=== PATIENT | female | born 2000 | race African-American/Black ===

== ENCOUNTER 2024-05-26 07:28 | Inpatient (IN) ==
[2024-05-26] MEDS ORDERED: OXYTOCIN 30 UNITS/NSS 30 UNITS/500 ML BAG IV PRN ×2 (07:44→20:35)
[2024-05-26] MEDS ORDERED: ACETAMINOPHEN 325 MG TAB PO PRN ×2 (07:44→20:35)
[2024-05-26] MEDS ORDERED: LIDOCAINE 1% LOCAL 20 ML VIAL INFIL PRN (07:44)
--- NOTE | 2024-05-26 08:43 | History & Physical Report ---
Date of Service May 26, 2024 Assessment & Plan (1) Unfavorable cervix in term : (2) Group B streptococcal infection during : (3) IUGR (intrauterine growth restriction) affecting care of mother: Plan Begin pitocin induction. fetus category one. pcn for gbs positive. anticipate . Admission and Anticipated Discharge Date Admission Date: May 26, 2024 History of Present Illness Chief Complaint: iol Primary Care Provider: Silvino Gu DO Patient is a 24yof, with iup at 39 4/7 weeks who presents for iol for IUGR. Dx made at 34 weeks. Last us for growth was 05/17 wtih ac 5% and EFW 22%. Has had reassuring weekly testing. However, last two weeks her uad have been in 90- 95%. Last dvp 5.1. Has had good fm. Balloon placed last night. Has not fallen out. GBS positive. At the last ultrasound, the tech noted that the rectosigmoid colon looked dilated. this was the first time this was noted in multiple ultrasounds. and Delivery Plans IUGR *Twice weekly NST/DVP@Dx *Weeklyl doppler@Dx *Growth US Q4wk @Dx *Deliver [id number] (unless abnml flow) *Deliver 37wks (less than 3rd%) GBS+ OB Labs: Blood Type O Positive 10/20/23 Antibody Screen NEGATIVE 10/20/23 Hemoglobin 10.8 g/dl (12.0-16.0) L 03/08/24 Hematocrit 31.7 % (37.0-47.0) L 03/08/24 Mean Corpuscular Volume 87.4 fL (80.0-100.0) 10/20/23 Platelet Count 236 K/uL (130-400) 10/20/23 Rubella IgG Antibody Immune (Immune) 10/20/23 Rapid Plasma Reagin Nonreactive (Nonreactive) 10/20/23 Hepatitis B Surface Antigen. NON-REACTIVE (NON-REACTIVE) 10/20/23 Hepatitis C Antibody (EIA) NON-REACTIVE (NON-REACTIVE) 10/20/23 HIV (1&2) Ag and Ab Confirmation NON-REACTIVE (NON-REACTIVE) 10/20/23 Glucose 1 Hour 50 gm Load 101 mg/dl (70-130) 03/08/24 OB Optional Labs: Chlamydia trachomatis RNA Not Detected (NotDetected) 10/20/23 Neisseria gonorrhoeae RNA Not Detected (NotDetected) 10/20/23 Labs Reviewed: Declines carrier screening--mln cfdna-low risk--mln Allergies Allergy/AdvReac Type Severity Reaction Status Date / Time No Known Allergies Allergy Verified 05/24/24 09:11 Home Medications Medication Instructions Recorded Confirmed Type prenat.vits,blaze,ekg-ixzb-pzupg 1 tab PO DAILY 04/07/23 05/26/24 History choline 1 cap PO DAILY 05/25/24 05/26/24 History ferrous sulfate 325 mg (65 mg 325 mg PO Q OTHER DAY 05/25/24 05/26/24 History iron) capsule,extended release Patient History Medical History Varicella vaccination No pertinent past medical history Surgical History H/O oral surgery wisdom teeth Family History Mother Anemia Grandmother (Maternal) Anemia Diabetes Heart disease Hypertension Hypercholesteremia Grandfather (Maternal) Diabetes Aunt Endometriosis Depression Colorectal cancer Denies family history of Ovarian cancer Prostate cancer Myocardial infarction Breast cancer Social History Smoking Status: Never smoker Second Hand Exposure: No; Do You Dip or Chew Tobacco: No; Hx Alcohol Use: No Hx Substance Use: No Preferred Language: Arabic Communication Ability: Effective Photoresist Contact Printer Required: No Beliefs That Will Affect Care: None marital status: marital status details: Marc Crandall (26) [phone] Current Living Situation: Spouse Current Living Situation Comment: lives with spouse, cat-spouse changing litter current occupational status: employed 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 How many Children do You have: 0 Other Information That Helps Us Care for You: No Feels Safe at Home: Yes Safety Concerns: Feels Safe At This Time Diet: regular Assistive Devices: None 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
[2024-05-26 08:46] LABS: Hematocrit (blood only) 36.5 % (37.0-47.0); Hemoglobin 12.5 g/dl (12.0-16.0); Mean Corpuscular Hemoglobin 30.8 pg (25.0-34.0); Mean Corpuscular Hgb Conc 34.2 g/dL (32.0-36.0); Mean Corpuscular Volume 89.9 fL (80.0-100.0); Mean Platelet Volume 10.1 fL (9.4-12.4); Platelet Count 227 K/uL (130-400); RDW Coefficient of Variation 13.3 % (11.5-14.5); RDW Standard Deviation 43.8 fL (36.4-46.3); Red Blood Count 4.06 M/uL (4.20-5.40); White Blood Count 9.29 K/ul (4.8-10.8)
[2024-05-26] MEDS: LACTATED RINGER'S 1,000 ML IV PRN (08:50)
[2024-05-26] MEDS: PENICILLIN GK 6 MU in DEXTROSE 5% 250 ML IV STA (08:50)
[2024-05-26] MEDS: OXYTOCIN 30 UNITS/NSS 30 UNITS/500 ML BAG IV PRN (08:58)
--- NOTE | 2024-05-26 09:00 | Communication Note ---
Date of Service: May 26, 2024 Gentle tug on bulb and removed. cx /-2/soft Start pitocin induction. Desires epidural
--- NOTE | 2024-05-26 13:20 | Anesthesiology Consultation ---
Date of Service May 26, 2024 Assessment & Plan (1) Encounter for pre-operative examination: Chart Review Chart Review: Acceptable Risk for Labor Epidural History Height/Weight Height: 5 ft 8 in Weight: 87.09 kg Allergies Allergy/AdvReac Type Severity Reaction Status Date / Time No Known Allergies Allergy Verified 05/24/24 09:11 Medications Home Medications Medication Instructions Recorded Confirmed Last Taken prenat.vits,blaze,nhq-brsi-htggr 1 tab PO DAILY 04/07/23 05/26/24 05/25/24 09:00 choline 1 cap PO DAILY 05/25/24 05/26/24 05/25/24 09:00 ferrous sulfate 325 mg (65 mg 325 mg PO Q OTHER DAY 05/25/24 05/26/24 05/25/24 09:00 iron) capsule,extended release Active Medications Generic Name Dose Route Start Last Admin Trade Name Freq PRN Reason Stop Dose Admin Oxytocin 30 units in 500 mls @ 10 mls/hr 05/26/24 07:44 05/26/24 11:55 Pitocin 30 Units/Nss IV 05/28/24 07:43 0.6 units/hr .Q24H PRN 10 mls/hr Labor Induction/Augmentation Titration Protocol 0.6 UNITS/HR Lactated Ringer's 1,000 mls @ 125 mls/hr 05/26/24 07:44 05/26/24 08:50 Lr IV 05/28/24 07:43 125 mls/hr .Q8H PRN Administration L&D Protocol Protocol Past Medical History Medical History Varicella vaccination No pertinent past medical history Past Family History Family History Mother Anemia Grandmother (Maternal) Anemia Diabetes Heart disease Hypertension Hypercholesteremia Grandfather (Maternal) Diabetes Aunt Endometriosis Depression Colorectal cancer Denies family history of Ovarian cancer Prostate cancer Myocardial infarction Breast cancer Past Surgical History Surgical History H/O oral surgery wisdom teeth Social History Smoking Status: Never smoker Do You Dip or Chew Tobacco: No Hx Alcohol Use: No Hx Substance Use: No Physical Exam Vital Signs Last Vital Signs Temp 36.9 C 05/26/24 11:11 Pulse 95 H 05/26/24 13:15 Resp 18 05/26/24 12:00 BP 122/74 05/26/24 13:03 Pulse Ox 92 05/26/24 13:15 Testing Laboratory Results 05/26/24 08:03
[2024-05-26] MEDS: PENICILLIN GK 3 MU in DEXTROSE 5% 100 ML IV PRN (13:24)
[2024-05-26] MEDS: CALCIUM CARBONATE 500 MG CHEWABLE TAB PO PRN (13:29)
[2024-05-26] MEDS: fentaNYL citrate PF 100 MCG/2 ML VIAL ONE (13:47)
[2024-05-26] MEDS: BUPIVACAINE 0.25% PF 30 ML VIAL ONE (13:47)
[2024-05-26] MEDS: LIDOCAINE 2%/EPINEPHRINE 1:200,000 20 ML PF ONE (13:50)
[2024-05-26] MEDS: fentANYL 2 MCG/ML BUPIVacaine 0.125%-NSS 100ML BAG ONE (13:51)
[2024-05-26] MEDS ORDERED: SODIUM CHLORIDE 0.9% PF INJ 10 ML VIAL EPI PRN (13:57)
[2024-05-26] MEDS ORDERED: ePHEDrine sulfate 50 MG/ML AMP IV PRN (13:57)
[2024-05-26] MEDS ORDERED: NALOXONE HCL 1 MG in SODIUM CHLORIDE 0.9% 1,000 ML IV PRN (13:57)
[2024-05-26] MEDS ORDERED: ROPIVACAINE 0.5% PF 5 MG/ML 20 ML VIAL EPI PRN (13:57)
[2024-05-26] MEDS ORDERED: BUPIVACAINE 0.25% PF 30 ML VIAL EPI PRN (13:57)
[2024-05-26] MEDS ORDERED: NALOXONE HCL 0.4 MG/1 ML VIAL/CARP IV PRN (13:57)
[2024-05-26] MEDS ORDERED: LIDOCAINE 2% MPF LOCAL 5 ML VIAL EPI PRN (13:57)
[2024-05-26] MEDS ORDERED: fentaNYL citrate PF 100 MCG/2 ML VIAL EPI PRN (13:57)
[2024-05-26] MEDS ORDERED: fentANYL 2 MCG/ML BUPIVacaine 0.125%-NSS 100ML BAG EPI PRN (13:57)
[2024-05-26] MEDS ORDERED: ONDANSETRON INJ 2 MG/ML 2 ML VIAL IV PRN (13:57)
[2024-05-26] MEDS: SODIUM CHLORIDE 0.9% PF INJ 10 ML VIAL ONE (13:58)
[2024-05-26] MEDS: ePHEDrine sulfate 50 MG/ML AMP ONE (13:58)
--- NOTE | 2024-05-26 14:35 | Labor Progress Brief Note ---
Date of Service May 26, 2024 Subjective comfortable Assessment & Plan (1) Group B streptococcal infection during : (2) IUGR (intrauterine growth restriction) affecting care of mother: Plan continue current management . fetus category one. anticipate . Admission and Anticipated Discharge Date Admission Date: May 26, 2024 Physical Exam Physical Exam: cx--5.5/90/-2 arom--clear toco--q2-3, pit at 10 efm--140s with mod variability, accels to 160s, no decels Results & Data Vital Signs (Past 12 Hours) Vital Signs Temp Pulse Resp BP Pulse Ox 05/26/24 14:32 74 118/62 05/26/24 14:29 75 99 05/26/24 14:24 81 99 05/26/24 14:19 75 98 05/26/24 14:14 73 100 05/26/24 14:11 74 114/56 L 05/26/24 14:09 87 99 05/26/24 14:05 80 107/65 05/26/24 14:04 74 100 05/26/24 13:59 99 05/26/24 13:59 77 05/26/24 13:59 73 112/64 05/26/24 13:57 73 117/65 05/26/24 13:55 69 114/65 05/26/24 13:54 66 98 05/26/24 13:53 74 20 113/66 05/26/24 13:51 68 124/69 05/26/24 13:49 76 119/71 100 05/26/24 13:47 77 116/73 05/26/24 13:45 85 116/69 05/26/24 13:44 85 100 05/26/24 13:39 88 121/73 100 05/26/24 13:34 76 100 05/26/24 13:31 91 H 91 05/26/24 13:29 79 98 05/26/24 13:24 81 100 05/26/24 13:19 75 100 05/26/24 13:15 95 H 92 05/26/24 13:14 94 H 96 05/26/24 13:09 66 100 05/26/24 13:03 88 122/74 05/26/24 12:00 63 18 117/63 05/26/24 11:11 36.9 C 61 18 112/62 05/26/24 10:01 67 18 118/73 05/26/24 09:18 78 20 120/66 05/26/24 07:49 36.9 C 20 Coding Level of Care Code None Diagnoses Group B streptococcal infection during O98.819; B95.1 IUGR (intrauterine growth restriction) affecting care of mother O36.5990
[2024-05-26] MEDS: BUPIVACAINE 0.25% PF 30 ML VIAL EPI STA (19:53)
[2024-05-26] MEDS: LIDOCAINE 2%/EPINEPHRINE 1:200,000 20 ML PF EPI STA (19:53)
[2024-05-26] MEDS: fentaNYL citrate PF 100 MCG/2 ML VIAL EPI STA (19:53)
[2024-05-26] MEDS: SODIUM CHLORIDE 0.9% PF INJ 10 ML VIAL EPI STA (19:53)
[2024-05-26] MEDS ORDERED: oxyCODONE/ACETAMINOPHEN 5mg/325mg TAB PO PRN (20:35)
[2024-05-26] MEDS ORDERED: bisacodyL 10 MG SUPP PR PRN (20:35)
[2024-05-26] MEDS ORDERED: HYDROCORTISONE ACETATE 25 MG SUPP PR PRN (20:35)
--- NOTE | 2024-05-26 20:35 | Delivery Summary ---
Vaginal Delivery Summary Date of Service May 26, 2024 Vaginal Delivery Summary and 1st Degree LAC Pre-operative Diagnosis: at 39 4/7 weeks iugr gbs positive Post-operative Diagnosis: same Procedure: bills for cervical ripening pitocin induction epidural arom first degree laceration and repair QBL: 156cc Anesthesia: epidural Procedure: The patient presented to labor and delivery for iol for iugr. Had bills bulb placed the night before. Bills removed with a gentle tug. Pitocin started. Once in a good contraction pattern, got epidural. Then had arom for clear fluid at 5cm. Patient progressed to c/c/+3. The patient pushed for about 10 min to deliver a viable male in nash position. The nose and mouth were bulb suctioned on the perineum and the rest of the was then delivered without difficulty. The baby was vigorous. The nose and mouth were again bulb suctioned and the was placed in the maternal abdomen for drying and attention. Cord was clamped and cut at one minute of life. Cord blood and segment obtained. Placenta delivered spontaneous, intact with a three vessel cord. Cervix/sulci/rectum were intact. A first degree perineal laceration was repaired in the normal standard fashion. Hemostasis obtained with dilute pitocin and fundal massage. Apgars were 8/9. Mother and baby doing well at the end of the delivery. [facility] [place] Vaginal Delivery Charge Delivery Type Details: and 1st Degree LAC
[2024-05-26] MEDS: DIPHTHER/TETAN/PERTUS Vaccine (Tdap, Adol/Adult) 0.5mL IM ONE (20:57)
[2024-05-26] MEDS: DOCUSATE SODIUM 100 MG CAP PO SCH (21:00)
--- NOTE | 2024-05-26 21:18 | Anesthesia Procedure Note ---
Date of Service May 26, 2024 Anesthesia Post Epidural Note Vital Signs Vital Signs: Temp Pulse Resp BP Pulse Ox 37.2 C 92 H 18 102/58 L 100 05/26/24 21:00 05/26/24 21:16 05/26/24 21:00 05/26/24 21:16 05/26/24 20:24 Pain Intensity Bilateral Abdomen: Pain Intensity: 5 Notes Mental Status: alert / awake / arousable and participated in evaluation Nausea / Vomiting: adequately controlled Pain: adequately controlled Airway Patency, RR, SpO2: stable & adequate BP & HR: stable & adequate Hydration State: stable & adequate Neuraxial Anesthesia: was administered and sensory block is resolving Anesthetic Complications: no major complications apparent Epidural: Removed without complications and With tip intact
[2024-05-26] MEDS: BENZOCAINE 20% SPRY 85 APPLN/85 GM CAN EXT PRN (22:58)
[2024-05-27] MEDS: IBUPROFEN 600 MG TAB PO PRN (02:55)
--- NOTE | 2024-05-27 07:13 | Obstetrical Progress Note ---
Date of Service May 27, 2024 Assessment & Plan (1) Encounter for assessment: Plan Doing well. Routine pp exam. Day #:: 0 Subjective Ambulation: ambulating normally Voiding: no voiding problems Passing Gas:: Yes Diet Tolerance:: regular diet Lochia:: Small Feeding Type:: breast feeding Physical Exam Constitutional WD/WN, vitals as above Cardiovascular Extremities: no calf tenderness and no edema Gastrointestinal (Abdomen) soft, nt, nd, ff/nt at u Psychiatric A+Ox3, euthymic affect Results & Data Vital Signs (Past 12 Hours) Vital Signs Temp Pulse Pulse Resp BP BP BP 05/27/24 02:50 36.5 C 67 18 95/55 L 05/26/24 23:21 37.1 C 74 18 109/64 05/26/24 22:31 85 107/55 L 05/26/24 22:30 37.3 C 18 05/26/24 22:16 87 107/57 L 05/26/24 22:01 77 106/55 L 05/26/24 22:00 37.0 C 18 05/26/24 21:47 85 118/58 L 05/26/24 21:31 80 110/53 L 05/26/24 21:30 37.0 C 18 05/26/24 21:16 92 H 102/58 L 05/26/24 21:15 37.0 C 18 05/26/24 21:10 83 94/65 L 05/26/24 21:02 74 86/43 L 05/26/24 21:00 37.2 C 18 05/26/24 20:46 120/61 05/26/24 20:45 37.2 C 18 05/26/24 20:33 80 120/58 L 05/26/24 20:30 37.5 C 18 05/26/24 20:24 83 05/26/24 20:19 87 05/26/24 20:17 97 H 05/26/24 20:16 73 125/59 L 05/26/24 20:14 93 H 05/26/24 20:09 80 05/26/24 20:04 87 05/26/24 20:01 90 124/68 05/26/24 19:59 89 05/26/24 19:54 76 05/26/24 19:49 74 05/26/24 19:47 76 118/61 05/26/24 19:44 78 05/26/24 19:39 95 H 05/26/24 19:36 75 05/26/24 19:34 76 05/26/24 19:32 75 118/80 05/26/24 19:29 82 05/26/24 19:27 80 05/26/24 19:24 70 05/26/24 19:19 70 05/26/24 19:17 68 123/74 05/26/24 19:14 98 H Pulse Ox O2 Del Method 05/27/24 02:50 97 Room Air 05/26/24 23:21 94 Room Air 05/26/24 22:31 05/26/24 22:30 05/26/24 22:16 05/26/24 22:01 05/26/24 22:00 05/26/24 21:47 05/26/24 21:31 05/26/24 21:30 05/26/24 21:16 05/26/24 21:15 05/26/24 21:10 05/26/24 21:02 05/26/24 21:00 05/26/24 20:46 05/26/24 20:45 05/26/24 20:33 05/26/24 20:30 05/26/24 20:24 100 05/26/24 20:19 99 05/26/24 20:17 90 05/26/24 20:16 05/26/24 20:14 100 05/26/24 20:09 100 05/26/24 20:04 100 05/26/24 20:01 05/26/24 19:59 100 05/26/24 19:54 100 05/26/24 19:49 100 05/26/24 19:47 05/26/24 19:44 99 05/26/24 19:39 100 05/26/24 19:36 92 05/26/24 19:34 97 05/26/24 19:32 05/26/24 19:29 94 05/26/24 19:27 93 05/26/24 19:24 100 05/26/24 19:19 100 05/26/24 19:17 05/26/24 19:14 100
[2024-05-27 07:31] LABS: Hematocrit (blood only) 32.9 % (37.0-47.0)
[2024-05-27] MEDS: PRENATAL VITAMIN 1 TAB PO SCH (09:16)
[2024-05-27] MEDS: bisacodyL 5 MG TABEC PO SCH (20:00)
--- NOTE | 2024-05-28 07:32 | Obstetrical Progress Note ---
Date of Service May 28, 2024 Assessment & Plan (1) Encounter for assessment: PPD#2 doing well. Desires DC home, reviewed instructions. Followup 6w PP. Subjective Ambulation: ambulating normally Voiding: no voiding problems Diet Tolerance:: regular diet Lochia:: Moderate Review of Systems All systems reviewed & are unremarkable except as noted in HPI & below Physical Exam Constitutional WD/WN, vitals as above no acute distress Respiratory normal respiratory effort Cardiovascular Rate/Rhythm: regular rate and regular rhythm Gastrointestinal (Abdomen) Inspection/Auscultation: abdomen normal to inspection; abdomen not distended Percussion/Palpation: abdomen soft Genitourinary OB Exam Abdomen: + fundal height Fundus: + firm; not tender Results & Data Vital Signs (Past 12 Hours) Vital Signs Temp Pulse Resp BP Pulse Ox O2 Del Method 05/27/24 23:40 36.5 C 59 L 16 100/62 97 Room Air
== END 2024-05-28 12:55 | disposition home or self-care (01) | DRG 807 ==
LOC: 4S1 07:28 → 4E2 23:28
DX: O99.824 Streptococcus B carrier state complicating childbirth; Z3A.39 39 weeks gestation of pregnancy; O70.0 First degree perineal laceration during delivery; O36.5930 Maternal care for other known or suspected poor fetal growth, third trimester, not applicable or unspecified; Z37.0 Single live birth; Z83.3 Family history of diabetes mellitus